=== PATIENT | male | born 1995 | race Caucasian/White ===

== ENCOUNTER 2020-10-03 09:16 | Emergency (ER) | payer SELFPAY ==
[~2020-10-03] VITALS: Ht 167.6 cm; Wt 73.5 kg
[2020-10-03 09:16] VITALS: BP_SYST 146
--- NOTE | 2020-10-03 09:16 | NUR ---
Patient to ER bed 06 to gown for evaluation. Side rails up.
--- NOTE | 2020-10-03 09:20 | NUR ---
Pt walked in to ER with request for a test to find out if he can have children. 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 Denies any pain at this time. V/S stable, no acute distress noted.
--- NOTE | 2020-10-03 09:30 | NUR ---
ER Dr. Wright at bedside examining patient.
--- NOTE | 2020-10-03 10:00 | NUR ---
Patient given written and verbal discharge instructions and verbalizes understanding. ER MD discussed with patient the results and treatment provided. Patient in stable condition. ID arm band removed. Patient educated on pain management and to follow up with PMD. Pain Scale 0/10. Opportunity for questions provided and answered. Medication side effect fact sheet provided.
[2020-10-03 10:22] VITALS: BP_SYST 142
== END 2020-10-03 10:00 | disposition home or self-care (01) ==
LOC: SED 09:16
DX: Z31.41 Encounter for fertility testing (principal)
CPT/HCPCS: 99281

== ENCOUNTER 2022-08-14 16:02 | Emergency (ER) | payer SELFPAY ==
[~2022-08-14] VITALS: Ht 175.3 cm; Wt 81.6 kg
[2022-08-14 16:06] VITALS: BP_SYST 145
--- NOTE | 2022-08-14 16:11 | NUR ---
Patient to ER bed H1 to gown for evaluation. Side rails up.
--- NOTE | 2022-08-14 16:39 | NUR ---
ER at bedside examining patient.
[2022-08-14] MEDS ORDERED: IBUPROFEN 600 MG TABLET PO ONE (16:45)
[2022-08-14] MEDS ORDERED: PSEUDOEPHEDRINE HCL 30 MG TABLET PO ONE (16:45)
--- NOTE | 2022-08-14 16:56 | NUR ---
medicated per md orders
[2022-08-14 16:59] VITALS: BP_SYST 145
--- NOTE | 2022-08-14 16:59 | NUR ---
Patient given written and verbal discharge instructions and verbalizes understanding. ER MD discussed with patient the results and treatment provided. Patient in stable condition. ID arm band removed. Patient educated on pain management and to follow up with PMD. Pain Scale 0/10 Opportunity for questions provided and answered.
== END 2022-08-14 16:59 ==
LOC: SED 16:02
DX: J32.9 Chronic sinusitis, unspecified (principal); R09.81 Nasal congestion; J34.89 Other specified disorders of nose and nasal sinuses; Z79.899 Other long term (current) drug therapy
CPT/HCPCS: 99283